=== PATIENT | female | born 1965 | race Caucasian/White ===

== ENCOUNTER 2024-09-20 20:12 | Emergency (ER) | payer BC, OTHER ==
[~2024-09-20] VITALS: Ht 154.9 cm; Wt 65.9 kg
[2024-09-20] MEDS: ACETAMINOPHEN 500 MG TAB or CAP PO ONE (22:40)
[2024-09-20 22:42] VITALS: RESP 17; TEMP 97.8; O2SAT 99
--- NOTE | 2024-09-20 22:44 | DVH ---
CHEST RADIOGRAPH REASON FOR EXAM: Elevated blood pressure COMPARISON: None TECHNIQUE: One view of the chest is provided FINDINGS: The cardiomediastinal silhouette is within normal limits for technique. There is no focal a irspace disease. There is no significant pleural effusion. No acute bony abnormality is identified. IMPRESSION: No radiographic evidence of acute cardiopulmonary process.
[2024-09-20 23:00] LABS: Hematocrit 39.2 % (36.0-46.0); Hemoglobin 12.9 g/dL (12.2-16.2); Mean Corpuscular Hemoglobin 27.2 pg (28.0-32.0); Mean Corpuscular Volume 82.3 fL (80.0-100.0); Nucleated Red Blood Cells % 0.0 %
[2024-09-20 23:13] LABS: Chloride 105 mmol/L (98-107); Potassium 3.8 mmol/L (3.5-5.1); Sodium 142 mmol/L (136-145)
[2024-09-20 23:14] LABS: Anion Gap 9 (5-15); Carbon Dioxide 28 mmol/L (20-31)
[2024-09-20 23:15] LABS: Calcium 9.8 mg/dL (8.7-10.4)
[2024-09-20 23:19] LABS: BUN/Creatinine Ratio 11.5 (10.0-20.0); Blood Urea Nitrogen 11 mg/dL (9-23); Glucose 87 mg/dL (74-106)
[2024-09-20 23:47] VITALS: BP 113/77; PULSE 81
--- NOTE | 2024-09-21 00:25 | ED.PDOC ---
History of Present Illness HPI Comments 59-year-old female with a history of hypertension brought in by private car for evaluation of elevated blood pressure. Patient states she has a history of hypertension and was on amlodipine, however stopped taking it more than a year ago. She states she stopped taking her medication because while she was taking it, her blood pressure was normal, so she did not feel she needed the medication. Over the past 2 days, she states she has been feeling pressure behind her eyes, and has been having chest pain over the past week and a half. She denies any chest pain now, headache, vision changes, focal weakness or shortness a breath. She states her blood pressure at work today was 187/104. She took her amlodipine 5 mg, which improved her blood pressure to 174 systolic. 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 Family History Family History: Reviewed,noncontributory to illness Social History Smoker: Non-Smoker Alcohol: Denies ETOH Use Drugs: Denies Drug Use Lives In: Home Constitutional: denies: chills, diaphoresis, fatigue, fever, malaise, sweats, weakness, others EENTM: reports: blurred vision, eye pain; denies: double vision, ear bleeding, ear discharge, ear drainage, ear pain, ear ringing, eye redness, hearing loss, mouth pain, mouth swelling, nasal discharge, nose bleeding, nose congestion, nose pain, photophobia, tearing, throat pain, throat swelling, voice changes, others Respiratory: denies: cough, hemoptysis, orthopnea, SOB at rest, shortness of breath, SOB with excertion, stridor, wheezing, others Cardiovascular: reports: chest pain, palpitations; denies: dizzy spells, diaphoresis, Dyspnea on exertion, edema, irregular heart beat, left arm pain, lightheadedness, PND, syncope, others Gastrointestinal: denies: abdomen distended, abdominal pain, blood streaked bowels, constipated, diarrhea, dysphagia, difficulty swallowing, hematemesis, melena, nausea, poor appetite, poor fluid intake, rectal bleeding, rectal pain, vomiting, others Genitourinary: denies: abnormal vagina bleeding, burning, dyspareunia, dysuria, flank pain, frequency, hematuria, incontinence, pain, , vagina discharge, urgency, others Neurological: reports: headache; denies: dizziness, fainting, left sided numbness, left sided weakness, numbness, paresthesia, pre-existing deficit, right sided numbness, right sided weakness, seizure, speech problems, tingling, tremors, weakness, others Musculoskeletal: denies: back pain, gout, joint pain, joint swelling, muscle pain, muscle stiffness, neck pain, others Integumetry: denies: bruises, change in color, change in hair/nails, dryness, laceration, lesions, lumps, rash, wounds, others Allergic/Immunocompromised: denies: Difficulty Healing, Frequent Infections, Hives, Itching, others Hematologic/Lymphatic: denies: anemia, blood clots, easy bleeding, easy bruising, swollen glands, others Endocrine: denies: excessive hunger, excessive sweating, excessive thirst, excessive urination, flushing, intolerance to cold, intolerance to heat, unexplained weight gain, unexplained weight loss, others Psychiatric: denies: anxiety, bipolar disorder, depression, hopeless, panic disorder, schizophrenia, sleepless, suicidal, others All Other Systems: Reviewed and Negative Physical Exam General Appearance: No Apparent Distress HEENT: Other (Pupils and face symmetric. Moist mucous membranes.) Neck: Full Range of Motion, Normal Inspection Respiratory: Lungs Clear, No Accessory Muscle Use, No Respiratory Distress, Normal Breath Sounds Cardiovascular: No Edema, No JVD, Regular Rate/Rhythm Breast Exam: Deferred Gastrointestinal: Non Tender, Soft Genitalia: Deferred Pelvic: Deferred Rectal: Deferred Extremities: Normal inspection, Normal range of motion, Non-tender, No pedal edema Neurologic: Alert (Oriented x4), Normal Affect, Normal Mood, Other (Ambulatory without difficulty. No gross focal deficit.) Cerebellar Function: NOT DONE Reflexes: NOT DONE Skin: Dry, Normal Color, Warm Lymphatic: NOT DONE Was a procedure done? Was a procedure done?: No EKG EKG : Comments Sinus rhythm, rate 78, normal intervals, normal axis, normal QRS, minimal lateral ST-depression Differential Dx Considerations may include: Hypertensive urgency/emergency, CHF, mi, renal failure, among others X-Ray, Labs, Meds, VS Vital Signs Date Time Temp Pulse Resp B/P (MAP) Pulse Ox O2 Delivery O2 Flow Rate FiO2 09/20/24 23:47 81 113/77 (89) 09/20/24 22:42 84 17 99 Room Air 09/20/24 22:42 97.8 84 17 186/85 (118) 99 97.8 09/20/24 22:41 186/85 09/20/24 20:14 97.9 89 20 175/90 97 97.9 Lab Test 09/20/24 22:28 Range/Units White Blood Count 5.7 4.4-10.8 10^3/uL Red Blood Count 4.76 4.0-5.20 10^6/uL Hemoglobin 12.9 12.2-16.2 g/dL Hematocrit 39.2 36.0-46.0 % Mean Corpuscular Volume 82.3 80.0-100.0 fL Mean Corpuscular Hemoglobin 27.2 L 28.0-32.0 pg Mean Corpuscular Hemoglobin Concent 33.1 32.0-36.0 g/dL Red Cell Distribution Width 16.7 H 11.8-14.3 % Platelet Count 295 140-450 10^3/uL Mean Platelet Volume 8.0 6.9-10.8 fL Neutrophils (%) (Auto) 55.0 37.0-80.0 % Lymphocytes (%) (Auto) 32.1 10.0-50.0 % Monocytes (%) (Auto) 11.1 0.0-12.0 % Eosinophils (%) (Auto) 0.8 0.0-7.0 % Basophils (%) (Auto) 1.0 0.0-2.0 % Neutrophils # (Auto) 3.1 1.6-8.6 10 ^3/uL Lymphocytes # (Auto) 1.8 0.4-5.4 10 ^3/uL Monocytes # (Auto) 0.6 0-1.3 10 ^3/uL Eosinophils # (Auto) 0 0-0.8 10 ^3/uL Basophils # (Auto) 0.1 0-0.2 10 ^3/uL Nucleated Red Blood Cells 0.0 % Sodium Level 142 136-145 mmol/L Potassium Level 3.8 3.5-5.1 mmol/L Chloride Level 105 98-107 mmol/L Carbon Dioxide Level 28 20-31 mmol/L Anion Gap 9 5-15 Blood Urea Nitrogen 11 9-23 mg/dL Creatinine 0.96 0.550-1.02 mg/dL Glomerular Filtration Rate Calc 68 >90 mL/min BUN/Creatinine Ratio 11.5 10.0-20.0 Serum Glucose 87 74-106 mg/dL Calcium Level 9.8 8.7-10.4 mg/dL Troponin I High Sensitivity < 3 L </=34 ng/L B-Type Natriuretic Peptide 22.65 0-100 pg/mL Current Medications Medications (Trade) Dose Ordered Sig/Diamond Route Start Time Stop Time Status Last Admin Hydralazine HCl (Apresoline Tablet) 10 mg ONCE ONCE PO 09/20/24 22:15 09/20/24 22:16 DC 09/20/24 22:41 Acetaminophen (Tylenol Tablet Or Capsule) 1,000 mg ONCE ONCE PO 09/20/24 22:15 09/20/24 22:16 DC 09/20/24 22:40 PROCEDURE(s): CXRP - CHEST PORTABLE REASON: hi bp ORDER NUMBER(s): [id number], ACCESSION NUMBER(s): [id number] CHEST RADIOGRAPH REASON FOR EXAM: Elevated blood pressure COMPARISON: None TECHNIQUE: One view of the chest is provided FINDINGS: The cardiomediastinal silhouette is within normal limits for technique. There is no focal airspace disease. There is no significant pleural effusion. No acute bony abnormality is identified. IMPRESSION: No radiographic evidence of acute cardiopulmonary process. X-Ray, Labs, Meds, VS Comment 59-year-old female with a history of hypertension, not taking her medications for the past year and a half, presenting with elevated blood pressure and pressure behind her eyes, associated with chest pain last week Vitals remarkable for BP 175/90 Exam unremarkable Rhythm strip independently interpreted by me: Sinus rhythm, rate 78, no ectopy. Chest x-ray unremarkable CBC, basic metabolic panel, BNP and troponin unremarkable Patient treated with the following in the ED: Tylenol 1 g p.o., hydralazine 10 mg p.o. On re-evaluation, patient's blood pressure improved to 113/77, and headache improved. Other vitals were stable. Hospitalization was considered, however patient had rapid improvement of symptoms with treatment in the ED, and I no longer feel hospitalization is necessary. Patient now appears stable for discharge with close outpatient follow-up with her primary physician. Rx amlodipine Time of 1ST Reevaluation: 00:28 Reevaluation 1ST: Unchanged Patient Education/Counseling: Diagnosis, Treatment Family Education/Counseling: No Family Present SEPSIS Sepsis Screen Date sepsis recognized/suspect: Sep 20, 2024 Time Sepsis recognized/suspect: 2013 Recent Procedure: No On Antibiotic Therapy: No Respiratory Rate >20: No Heart Rate >90: No Temp<36 C (96.8 F) or >38.3 C: No SBP <90 or MAP <65 mmHG: No New Acute Mental Status Change: No Is the patient on CPAP, BIPAP,: No Physician Orders Chest Portable (09/20/24 22:09) Urinalysis (09/20/24 22:09) Electrocardigram (09/20/24 22:09) Vital Signs Date Time Temp Pulse Resp B/P (MAP) Pulse Ox O2 Delivery O2 Flow Rate FiO2 09/20/24 23:47 81 113/77 (89) 09/20/24 22:42 84 17 99 Room Air 09/20/24 22:42 97.8 84 17 186/85 (118) 99 97.8 09/20/24 22:41 186/85 09/20/24 20:14 97.9 89 20 175/90 97 97.9 Laboratory Tests Test 09/20/24 22:28 White Blood Count 5.7 10^3/uL (4.4-10.8) Medications Medications Dose Ordered Sig/Diamond Route Start Time Stop Time Status Last Admin Dose Admin Acetaminophen 1,000 mg ONCE ONCE PO 09/20/24 22:15 09/20/24 22:16 DC 09/20/24 22:40 Hydralazine HCl 10 mg ONCE ONCE PO 09/20/24 22:15 09/20/24 22:16 DC 09/20/24 22:41 Departure 1 Departure Time of Disposition: 00:39 Impression: Primary Impression: Hypertensive urgency Disposition: 01 HOME / SELF CARE / HOMELESS Condition: Stable Additional Instructions: Your blood tests, including screening test for heart attack and heart failure were unremarkable. Your chest x-ray was unremarkable. I have prescribed medication for blood pressure. Follow-up with your primary doctor in 1-2 days. Return to ER for persistent or worsening symptoms. e-Prescriptions Amlodipine Besylate (NORVASC TABLET) 5 Mg Tb 1 TAB PO DAILY, #30 TAB 5 Refills Prov: STARR ALEX MD 09/21/24 Discharged With: Relative Critical Care Note Critical Care Time?: No Stability Stability form required: No Heart Score Heart Score: Heart Score Response (Comments) Value History N/A 0 EKG N/A 0 Age N/A 0 Risk Factors N/A 0 Troponin N/A 0 Total 0 I personally scribed for STARR ALEX MD ([email or web address]) on 09/21/24 at 00:25. Electronically submitted by Sanjay Angeles ([email or web address]). I personally scribed for STARR ALEX MD ([email or web address]) on 09/21/24 at 00:28. Electronically submitted by Sanjay Angeles ([email or web address]). STARR ALEX MD Sep 21, 2024 00:25
[2024-09-21] MEDS ORDERED: AML5T PO (00:42)
--- NOTE | 2024-09-23 07:48 | ECG ---
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
== END 2024-09-21 01:16 | disposition home or self-care (01) ==
LOC: ER 20:12
DX: I16.0 Hypertensive urgency (principal); I10 Essential (primary) hypertension; Z79.899 Other long term (current) drug therapy
CPT/HCPCS: 36415; 71045; 80048; 83880; 84484; 85025; 93005